=== PATIENT | male | born 1940 | race Caucasian/White ===

== ENCOUNTER 2017-08-20 14:06 | Emergency (ER) | payer MEDICARE ==
[~2017-08-20] VITALS: Ht 182.9 cm; Wt 79.5 kg
[2017-08-20 14:09] VITALS: TEMP 97.6
[2017-08-20] MEDS ORDERED: ULTRAM 50MG TAB50 MG PO (14:29)
[2017-08-20] MEDS ORDERED: NEURONTIN300 MG/CAP PO (14:29)
[2017-08-20] MEDS ORDERED: PRINIVIL40 MG PO (14:29)
[2017-08-20] MEDS ORDERED: MOBIC15 MG PO (14:30)
[2017-08-20] MEDS ORDERED: HCTZ 25MG TAB25 MG PO (14:30)
[2017-08-20] MEDS ORDERED: COREG 25MG25 MG/TAB PO (14:30)
[2017-08-20] MEDS ORDERED: DITROPAN 5MG TAB5 MG PO (14:31)
[2017-08-20] MEDS ORDERED: ZOCOR 40MG40 MG PO (14:31)
[2017-08-20] MEDS ORDERED: AMBIEN 10MG10 MG PO (14:32)
[2017-08-20] MEDS ORDERED: COMMIT PO (14:38)
[2017-08-20] MEDS ORDERED: MULTI VITAMINS1 TAB PO (14:39)
[2017-08-20] MEDS ORDERED: GLUCOSAMINE MSM1 TAB PO (14:39)
[2017-08-20] MEDS ORDERED: MIRALAX PA17 GM/Dose PO (14:39)
[2017-08-20] MEDS ORDERED: ASPIRIN 32325 MG/TAB PO (14:39)
[2017-08-20] MEDS ORDERED: PROCTOZONE-HC2.5% TOP (14:40)
[2017-08-20] MEDS ORDERED: METROCREAM CREA45 GM TOP (14:40)
[2017-08-20] MEDS ORDERED: TRIAMCINOLONE A15 G3 TOP (14:40)
[2017-08-20 14:46] LABS: BASO % 0.5 % (0.0-2.0); EOS # 0.3 (0.0-0.7); EOS % 3.9 % (0-4.0); GRAN # 4.4 (1.4-6.5); GRAN % 58.7 % (42.2-75.2); HEMOGLOBIN 12.2 g/dl (13.5-18.0); LYMPH % 26.4 % (20.0-51.0); MEAN CELL VOLUME 87 fl (80.0-100.0); MEAN CORPUSCULAR HEMOGLOBIN 29 pg (27.0-31.0); MEAN CORPUSCULAR HGB CONC 33 g/dl (33.0-37.0); MONO # 0.8 (0.1-0.6); MONO % 10.4 % (1.7-9.3); PLATELET COUNT 237 K/mm3 (130-400); RED BLOOD COUNT 4.27 M/mm3 (4.20-5.60); REDCELL DISTRIBUTION WIDTH-CV 13.2 % (11.5-14.5)
[2017-08-20 14:49] LABS: CALCIUM 9.1 mg/dL (8.4-10.2); CREATININE, serum 0.83 mg/dL (0.66-1.25); POTASSIUM 4.1 mmol/L (3.4-5.0)
[2017-08-20 16:18] VITALS: BP 139/74; PULSE 61
== END 2017-08-20 16:18 | disposition home or self-care (01) ==
LOC: COL.ER 14:06
PROVIDERS: Emergency Medicine
DX: I10 Essential (primary) hypertension (principal); Z79.82 Long term (current) use of aspirin

== ENCOUNTER 2018-12-13 03:18 | Inpatient (IN) | payer MEDICARE ==
[2018-12-12 23:50] VITALS: BP 157/73; PULSE 90; TEMP 98.8
[~2018-12-13] VITALS: Ht 182.9 cm; Wt 88.5 kg
[2018-12-13] VITALS (7 sets, daily range): BP systolic 136–193; BP diastolic 61–80; PULSE 78–99; TEMP 97.8–100.8
[~2018-12-13 03:18] MED LIST: AMBIEN 10MG10 MG PO; ASPIRIN 32325 MG/TAB PO; COMMIT PO; COREG 25MG25 MG/TAB PO; DITROPAN 5MG TAB5 MG PO; GLUCOSAMINE MSM1 TAB PO; HCTZ 25MG TAB25 MG PO; METROCREAM CREA45 GM TOP; MIRALAX PA17 GM/Dose PO; MOBIC15 MG PO; MULTI VITAMINS1 TAB PO; NEURONTIN300 MG/CAP PO; PRINIVIL40 MG PO; PROCTOZONE-HC2.5% TOP; TRIAMCINOLONE A15 G3 TOP; ULTRAM 50MG TAB50 MG PO; ZOCOR 40MG40 MG PO
[2018-12-13 04:22] LABS: BASO # 0.1 (0.0-0.2); BASO % 0.5 % (0.0-2.0); EOS # 0.3 (0.0-0.7); EOS % 3.2 % (0-4.0); GRAN # 6.1 (1.4-6.5); GRAN % 61.8 % (42.2-75.2); HEMOGLOBIN 11.2 g/dl (13.5-18.0); LYMPH # 1.9 (1.2-3.4); LYMPH % 19.3 % (20.0-51.0); MEAN CELL VOLUME 89 fl (80.0-100.0); MEAN CORPUSCULAR HEMOGLOBIN 28 pg (27.0-31.0); MEAN CORPUSCULAR HGB CONC 31 g/dl (33.0-37.0); MEAN PLATELET VOLUME 10.2 fl (7.4-10.4); MONO # 1.5 (0.1-0.6); MONO % 14.8 % (1.7-9.3); PLATELET COUNT 264 K/mm3 (130-400); RED BLOOD COUNT 4.05 M/mm3 (4.20-5.60); REDCELL DISTRIBUTION WIDTH-CV 15.5 % (11.5-14.5)
[2018-12-13 04:23] LABS: HEMATOCRIT 36.1 % (42.0-52.0)
[2018-12-13 04:26] LABS: PROTHROMBIN TIME 11.9 SECONDS (9.7-12.8)
[2018-12-13 04:31] LABS: ALBUMIN 3.7 gm/dL (3.5-5.0); BILIRUBIN,TOTAL 0.3 mg/dL (0.0-1.0); CREATININE, serum 0.81 (0.66-1.25); POTASSIUM 4.1 mmol/L (3.4-5.0); TOTAL PROTEIN 6.8 gm/dL (6.4-8.2)
--- NOTE | 2018-12-13 08:30 | NUR ---
Patient up from ER. Alert and oriented x 3. Shift assessment complete. External catheter applied. Patient states pain is "not bad" when he is not moving his leg. INT to left forarm without complications. Right lower extremity appears shortened. Pedal pulses intact. Skin tear noted to right elbow. Denies further needs at this time.
[2018-12-13 09:22] LABS: HEMOGLOBIN 11.2 g/dl (13.5-18.0); MEAN CELL VOLUME 89 fl (80.0-100.0); MEAN CORPUSCULAR HEMOGLOBIN 28 pg (27.0-31.0); MEAN CORPUSCULAR HGB CONC 32 g/dl (33.0-37.0); MEAN PLATELET VOLUME 10.2 fl (7.4-10.4); PLATELET COUNT 234 K/mm3 (130-400); RED BLOOD COUNT 3.98 M/mm3 (4.20-5.60); REDCELL DISTRIBUTION WIDTH-CV 15.7 % (11.5-14.5)
[2018-12-13 09:25] LABS: HEMATOCRIT 35.5 % (42.0-52.0)
[2018-12-13 09:43] LABS: LYMPHOCYTE 26 % (20.0-51.0); NEUTROPHILS 54 % (42.0-75.2); PLATELET ESTIMATE NORMAL (NORMAL)
--- NOTE | 2018-12-13 10:22 | NUR ---
Family was present. I visited, listened, provided spiritual care and prayed with the patient and family.
--- NOTE | 2018-12-13 19:16 | NUR ---
Patient has done well throughout the day. Morphine given for pain per orders. Calvert catheter inserted approximately noon, after patient stated that he felt like his bladder was full and having difficulty emptying. Bladder scanned patient for 250ml. Patient unable to void after multiple attempts. Tolerated procedure well. Prakash rutherford and SCDs to LLE. Denies further needs at this time. Reported off to manager shift.
[2018-12-14] VITALS (11 sets, daily range): BP systolic 111–147; BP diastolic 46–86; PULSE 62–92; TEMP 97.9–99.2
--- NOTE | 2018-12-14 06:03 | NUR ---
PT ADMIN. MORPHINE TWICE DURING THE NIGHT FOR PAIN FLARE-UPS. NO N/V. ICE IN USE.
--- NOTE | 2018-12-14 10:45 | NUR ---
Patient lives at home with his (Pamela Mayo [phone]) in [place], [place] and patient plans to discharge home upon recovery. Patient is mostly independent with daily living activities and has no anticipated durable medical equipment usage at this time. Patient has no primary care physician, his [facility] is [facility] and he does have advance directives of healthcare completed and is also a DNR. director of rehabilitative services will follow as needed.
--- NOTE | 2018-12-14 23:13 | NUR ---
Pt here with right hip fx. Has bulk dressing, CD&I. Alert and oriented. VSS. Does complain of moderate pain often. Given PRN morphine and demerol to help control. SCDs on. Calvert catheter in place wtih clear yellow output. Will continue to monitor pain. All questions asked and answered. Call light within reach
[2018-12-15 00:05] VITALS: BP 155/67; PULSE 104; TEMP 99.2
--- NOTE | 2018-12-15 02:03 | NUR ---
Patient having significant amount of pain to right hip and he states "all over" as well. PRN morphine given along with 1 dose of PRN demerol previously. Patient and son in room. Patient is currently sleeping after dose of morphine given. Call light within reach, will continue to monitor
--- NOTE | 2018-12-15 03:29 | NUR ---
Patient pain still uncontrolled, patient restless and warm to touch. Temp of 100.2. Patient states his pain is mostly in right hip but he also feels achy every where. Tiffanie Gonzalez notified of patients condition. Per Tiffanie, give ativan 0.5mg now and q4 prn. Monitor temp and report with any change. Will give ativan and continue to monitor patient. Call light within reach
[2018-12-15 04:00] VITALS: BP 172/71; PULSE 120; TEMP 99.1
--- NOTE | 2018-12-15 06:17 | NUR ---
Patient sleeping in room with son. Call light within reach, will continue to monitor
[2018-12-15 06:34] LABS: HEMOGLOBIN 10.1 g/dl (13.5-18.0)
[2018-12-15 06:44] LABS: HEMATOCRIT 31.4 % (42.0-52.0)
[2018-12-15 07:34] VITALS: BP 132/55; PULSE 109; TEMP 98
--- NOTE | 2018-12-15 09:00 | NUR ---
Patient called out to nurses station, states pain 9/10 to right hip. Patient and spouse state that roxycodone typically does not help with pain. Medications given per orders. Will continue to monitor.
--- NOTE | 2018-12-15 11:23 | NUR ---
Social Workers met with the patient and his , Pamela (ph#[phone]) to discuss a senior care placement. SW's presented the patient's with the Medicare.gov list of senior care facilities in their area. Patient's chose [facility] as first choice and [facility] as thier second choice. SW placed the choice form in the patient's file. [facility] and they were unable to accept until Saturday. SW's spoke with the patient and his and they selected [facility] as another option. SAMIRA faxed the referral to [facility]. SAMIRA was contacted by [facility] who advised they are unable to accept the referral. [facility] and left a message for SAMIRA, Chey. SAMIRA will continue to follow.
--- NOTE | 2018-12-15 11:26 | NUR ---
Patient states pain 8/10 to left hip after working with physical therapy, medications given per orders
[2018-12-15 11:33] VITALS: BP 116/50; PULSE 90; TEMP 98.6
[2018-12-15 15:39] VITALS: BP 135/46; PULSE 94; TEMP 97.8
--- NOTE | 2018-12-15 16:22 | NUR ---
Patient called out to nurses station, states pain 7/10 to right hip. Medications given per orders.
--- NOTE | 2018-12-15 16:48 | NUR ---
Certified Medical Asst met with the patient, patient's Pamela (ph#[phone]), patient's son ELVIS Mayo (ph#[phone]), and patient's daughter Melia Zavaleta (ph#[phone]) to review options for [place] [facility] [place] placement after SW spoke with [employer] service to review in network options. Patient and family stated [facility] would be the first choice if patient were to discharge on Saturday, which is when [facility] may be able to accept. Patient and family stated second choice would be [facility], third choice would be [facility], and fourth choice would be [facility]. SAMIRA faxed referrals to each choice. SAMIRA received a voicemail message from Chey Certified Medical Asst at [facility] which stated [facility] cannot accept the referral that was sent earlier today.
--- NOTE | 2018-12-15 18:34 | NUR ---
Patient has done well throughout the day. Family in room throughout the day. Denies further needs at this time. Encouraged patient to increase fluid intake. Advanced to full liquid diet. Tolerating well at this time. Calvert maintianed to dependent drainage with clear yellow urine present. Denies further needs at this time. Will report off to radiopharmacist.
[2018-12-15 19:32] VITALS: BP 148/55; PULSE 100; TEMP 98.7
--- NOTE | 2018-12-15 20:10 | NUR ---
Shift assessment complete. Pt resting in bed, awake, a&o, cooperative c cares. Pt c/o increased pain to R hip this evening, will given PRN pain med per pt req. Pt also c/o generalized soreness/stiffness. Denies any other c/o. Surgical dressing to R hip C/D/I, site s edema/drainage or other complication. INT patent. Pt denies any other needs at this time. Call light in reach, bed alarm on. Multiple family at bedside. Will continue to monitor.
[2018-12-16] VITALS (7 sets, daily range): BP systolic 101–157; BP diastolic 39–66; PULSE 72–96; TEMP 97.7–99.2
--- NOTE | 2018-12-16 07:00 | NUR ---
Reported on to VICKIE Adams
[2018-12-16 07:03] LABS: HEMATOCRIT 29.7 % (42.0-52.0); HEMOGLOBIN 9.7 g/dl (13.5-18.0)
--- NOTE | 2018-12-16 08:00 | NUR ---
Assessment performed. Abdomen is slightly distended and firm, but he did have a bowel movment an hourly previously. JES hose removed.
--- NOTE | 2018-12-16 08:00 | NUR ---
Patient in bed resting. Family at bedside. Alert and oriented x3. Shift assessment complete. Bulky dressing to right hip in place, CDI. Denies further needs at this time. Will continue to monitor
--- NOTE | 2018-12-16 11:21 | NUR ---
Pt moved to chair for 2 hours and then moved back to bed. Ate roughly 25% of breakfast and was encourged to drink more water. IS used throughout the morning reaching 1500. at bedside throughout morning. Reported off to VICKIE Adams.
--- NOTE | 2018-12-16 13:35 | NUR ---
Paged Tiffanie GARNICA for ortho.
--- NOTE | 2018-12-16 14:07 | NUR ---
Ditch Worker spoke with Keiry at [facility] who advised they would not be able to accept patient until Saturday. Keiry provided Path Paperwork that SW then provided to the patient's family to complete per [facility]'s request. Once completed, SAMIRA faxed the paperwork back to Keiry. SAMIRA spoke with Natalia at [facility] in [place] who advised they would be able to accept, however would need a prior authorization in order to complete the admission. Natalia to check with [facility] financial team on when prior auth can be initiated. SAMIRA spoke to the patient and his to discuss discharge planning. SAMIRA reviewed with patient and his that if patient discharges before Saturday, discharge would be to the second preference that can accept. SAMIRA also informed the patient and his that the patient's first preference, [facility] cannot provide transportation. Patient's stated patient's son could provide transportation if needed. Patient's expressed interest in Inpatient Rehab at [facility], per PT's recommendation. SAMIRA contacted VICKIE Domínguez who states she will meet with the familiy tomorrow morning to review IPR option.
--- NOTE | 2018-12-16 14:48 | NUR ---
Stock Crane Operator contacted Lazarus (ph#[phone]) at [facility] to update her on patient preference. SW faxed updates to [facility], [facility], and [facility]. SAMIRA will continue to follow.
--- NOTE | 2018-12-16 15:40 | NUR ---
Contacted Tiffanie GARNICA, patient has bustos catheter in from before surgery, TORB order to discontinue entered. Patient also having increased pain from right hip after new order for tramadol entered. Bustos catheter discontinued, patient tolerated procedure well. denies further needs at this time. Educated patient and family on pain medications
--- NOTE | 2018-12-16 18:50 | NUR ---
Patient has done well throughout the day. x2 assist to comode with walker. Requests pain meds for pain 10/10 to left hip this afternoon. Medications given per orders. Patient takes meds whole with pudding. Denies further needs at this time. Reported off to evening or night nurse supervisor.
--- NOTE | 2018-12-16 20:45 | NUR ---
Pt. laying in bed with at bedside. Pt. is A&OX3, assessment complete. INT to lt. forearm patent. Dressing to rt. hip CDI. Pt. reports that pain medication has helped pain. Pt. denies further needs, call light within reach.
[2018-12-17 04:20] VITALS: BP 135/48; PULSE 96; TEMP 98.1
--- NOTE | 2018-12-17 06:30 | NUR ---
Reported on to VICKIE Adams
[2018-12-17 06:45] VITALS: BP 137/63; PULSE 88; TEMP 98.5
--- NOTE | 2018-12-17 06:45 | NUR ---
Assessment performed. No obnormal findings. Son spent the night at the bedside.
[2018-12-17 07:13] LABS: HEMATOCRIT 27.1 % (42.0-52.0); HEMOGLOBIN 8.7 g/dl (13.5-18.0)
--- NOTE | 2018-12-17 08:00 | NUR ---
Changed occlusive dressing to aquacel. Janice are well approximated with mild reddness. Patient reports feeling a lot better.
--- NOTE | 2018-12-17 08:30 | NUR ---
Portable x ray of right hip done.
--- NOTE | 2018-12-17 09:00 | NUR ---
Patient in bed resting. Alert and oriented x 3. Shift assessment complete. Pedal pulses intact. JES hose and SCDs to BLE. Family at bedside. Denies further needs at this time.
[2018-12-17 11:00] VITALS: BP 116/48; PULSE 78; TEMP 97.8
--- NOTE | 2018-12-17 11:10 | NUR ---
Received call from Karime from [facility]-pt has been authorized for SNF. Had previously faxed pt information to her. Called Tiffanie GARNICA-left message concerning pt being approved for SNF. Pt currently being evaluated for continued pain to Right Hip requiring IV pain meds at times.
--- NOTE | 2018-12-17 11:24 | NUR ---
Reported off to VICKIE Adams
--- NOTE | 2018-12-17 13:57 | NUR ---
Block Cuber met with patient and patient's , Pamela to review discharge plan. SW reviewed patient preference of [facility] and that if discharge were to occur outside of Saturday, which is when [facility] can accept, discharge would be to second preference, [facility]. [facility] has accepted and has prior authorization. SAMIRA also reviewed with the family that [facility] is unable to accept at this time. SAMIRA spoke with Keiry of [facility] and Keiry advised [facility] can still accept on Saturday, but prefers not to accept over the weekend. SAMIRA faxed updates to [facility], [facility], and [facility].
[2018-12-17 16:29] VITALS: BP 141/51; PULSE 85; TEMP 98.3
--- NOTE | 2018-12-17 19:01 | NUR ---
Patient has done well thoughout the day. Family at bedside. States pain has been much better since dressing change. showered today with assistance. Denies pain at this time. Denies further needs at this time. Reported off to lieutenant shift supervisor.
[2018-12-17 20:06] VITALS: BP 156/62; PULSE 91; TEMP 98
--- NOTE | 2018-12-17 22:03 | NUR ---
Patient doing ok. Still c/o pain but is better controlled. PRN toradol given to pt. Pt has aquacell dressing to right hip, CD&I. Voiding ok. Has not had BM this shift but is passing gas. IV int to left forearm. Pt vss. BP mildly elevated but has not resumed BP medications. PT in room with . Pt and have no other concerns at this time. Call light within reach, will continue to monitor
[2018-12-18 00:14] VITALS: BP 157/55; PULSE 85; TEMP 97.7
[2018-12-18 04:30] VITALS: BP 161/77; PULSE 76; TEMP 97.9
[2018-12-18 08:03] VITALS: BP 133/47; PULSE 86; TEMP 97.3
--- NOTE | 2018-12-18 13:33 | NUR ---
Patient resting in bed, with family at bedside. Aquacell to right hip remains CDI. Patient voices no other concerns at this time. Bed in lowest position, call light within reach. Reported off to VICKIE Segovia.
--- NOTE | 2018-12-18 14:39 | NUR ---
Sponge Clipper spoke with VCIKIE Segovia who advised discharge should occur tomorrow. SAMIRA contacted [facility] to confirm they can accept on Saturday and that they have a pre-authorization. SAMIRA faxed updates to [facility]. SAMIRA confirmed with patient's , Pamela that family will provide transportation. SAMIRA presented IM form to patient's who understood and provided signature. SAMIRA placed original in chart and provided a copy to the patient's . SAMIRA will continue to follow.
[2018-12-18] MEDS ORDERED: ASPI325T6 PO (15:16)
[2018-12-18] MEDS ORDERED: ROXICODONE 55 MG/TAB PO (15:18)
[2018-12-18 16:10] VITALS: BP 135/50; PULSE 80; TEMP 98.1
--- NOTE | 2018-12-18 16:15 | NUR ---
REPORT FROM LYNDA JOHNSTON.
[2018-12-18 20:00] VITALS: BP 120/57; PULSE 79; TEMP 98.6
--- NOTE | 2018-12-18 20:13 | NUR ---
Pt resting in bed after ambulating to bathroom commode. Asked patient if he wanted to walk and he stated he wanted to rest. Still rating pain 8-10, given PRN oxycodone. SCD's and margaux hose on. INT to left forearm. Eating and drinking with no issues. Crushed meds in pudding. Denies needs at this time. Call light within reach, will continue to monitor
[2018-12-18 23:31] VITALS: BP 145/58; PULSE 75; TEMP 98.3
[2018-12-19 04:41] VITALS: BP 123/43; PULSE 85; TEMP 97.9
[2018-12-19 08:03] VITALS: BP 143/55; PULSE 85; TEMP 98.1
[2018-12-19 08:21] VITALS: BP 131/45; PULSE 88
--- NOTE | 2018-12-19 09:00 | NUR ---
Patient alert and oriented, answers questions appropriately. See assessment. RLE incision with edges well approximated, small amount of drainage and redness noted, aquacel changed. No numbness or tingling noted, pulses palpable. FWB. C/o pain to RLE, 4/10, with movement. No other c/o at this time.
[2018-12-19 09:56] VITALS: BP 131/45; PULSE 88; TEMP 98.1
--- NOTE | 2018-12-19 10:56 | NUR ---
Still Cleaner Tube met with patient's , Pamela who advised her son, ELVIS was on his way to picked edge sewing machine operator the patient to transport to [facility]. DJ should be here by 1130. SAMIRA relayed this information to SAMIRA Keller.
--- NOTE | 2018-12-19 12:16 | NUR ---
Patient transferred to [facility] in [place] via wheelchair/private vehicle. Attempted x2 to call report, message left for return phone call. Discharged at 1200.
== END 2018-12-19 12:00 | DRG 467 ==
LOC: COL.ER 03:18 → SURG 04:19
PROVIDERS: Emergency Medicine; Orthopaedic Surgery; Orthopaedic Surgery Sports Medicine; Physician Assistant; ADMIT Student in an Organized Health Care Education/Training Program
PROC: 0SPR0JZ Removal of Synthetic Substitute from Right Hip Joint, Femoral Surface, Open Approach (ICD-10-PCS; 2018-12-14)
PROC: 0QS604Z Reposition Right Upper Femur with Internal Fixation Device, Open Approach (ICD-10-PCS; 2018-12-14)
PROC: 0SRR0JZ Replacement of Right Hip Joint, Femoral Surface with Synthetic Substitute, Open Approach (ICD-10-PCS; principal; 2018-12-14 13:00)
DX: S72.91XA Unspecified fracture of right femur, initial encounter for closed fracture (principal); M97.01XA Periprosthetic fracture around internal prosthetic right hip joint, initial encounter; I10 Essential (primary) hypertension; E78.00 Pure hypercholesterolemia, unspecified; W18.30XA Fall on same level, unspecified, initial encounter; K64.9 Unspecified hemorrhoids; R52 Pain, unspecified; F17.220 Nicotine dependence, chewing tobacco, uncomplicated; Z79.82 Long term (current) use of aspirin; Z79.891 Long term (current) use of opiate analgesic; Z86.73 Personal history of transient ischemic attack (TIA), and cerebral infarction without residual deficits; Z85.46 Personal history of malignant neoplasm of prostate
CPT/HCPCS: A9284; C1776; J0690; J1650; J1885; J2175; J2250; J2270; J2704; J3010; J7120; J7121